=== PATIENT | male | born 1995 | race Two or more races ===

== ENCOUNTER 2023-02-14 12:52 | Outpatient (CLI) | payer OTHER, SELFPAY ==
[2023-02-14 13:39] LABS: Basophils Percent Auto 0.3 % (0.2-1.2); Hematocrit 49.3 % (42.0-52.0); Hemoglobin 15.9 g/dL (14.0-18.0); Immature Platelet Fraction Pct 11.9 % (0.9-11.2); Lymphocytes Absolute Auto 1.92 K/mm3 (0.9-3.2); Lymphocytes Percent Auto 52.7 % (18.3-44.2); Mean Corpuscular HGB Conc 32.3 g/dl (32-36); Mean Corpuscular Volume 86.8 fl (80-100); Mean Platelet Volume 11.3 fl (7.4-10.4); Monocytes Absolute Auto 0.4 K/mm3 (0.1-0.6); Monocytes Percent Auto 9.6 % (2.6-8.5); Neutrophils Absolute Auto 1.4 K/mm3 (1.3-6.7); Neutrophils Percent Auto 37.4 % (45.5-73.1); Platelet Count Result 119 k/mm3 (150-375); Red Blood Count 5.68 M/mm3 (4.6-6.20); Red Cell Distribution Width 11.9 % (11.5-14.5); White Blood Count 3.6 K/mm3 (4.5-10.0)
[2023-02-14 16:47] LABS: Iron 120 ug/dL (49-181)
[2023-02-14 16:49] LABS: Alanine Aminotransferase 16 U/L (6-50); Albumin Level 4.3 g/dL (3.5-5.1); Alkaline Phosphatase 76 U/L (38-126); Anion Gap 8 mmol/L (8-16); Aspartate Amino Transferase 30 U/L (17-59); Bilirubin,Total 1.3 mg/dL (0.2-1.3); Blood Urea Nitrogen 11 mg/dL (9-20); Calcium 9.5 mg/dL (8.4-10.2); Carbon Dioxide 28 mmol/L (22-30); Chloride 102 mmol/L (98-107); Estimated Glomerular Filt Rate > 60; Glucose 77 mg/dL (65-110); Potassium 4.1 mmol/L (3.4-5.0); Sodium 138 mmol/L (137-145)
[2023-02-14 16:57] LABS: Percent Iron Saturation 41 % (20-50)
[2023-02-14 17:55] LABS: Folic Acid 6.4 ng/mL (2.76->20)
[2023-02-18 08:58] LABS: Methylmalonic Acid 60 nmol/L (87-318)
[2023-02-18 12:15] LABS: Erythropoietin (EPO) 6.8 mIU/mL (2.6-18.5)
[2023-02-19 17:44] LABS: EBV Nuclear Ab Antibody <18.00 U/mL (<18.00); EBV Nuclear Ab Interpretation Recent; EBV Virus Capsid Ag IgG Ab >750.00 U/mL (<18.00); EBV Virus Capsid Ag IgM Ab <36.00 U/mL (<36.00)
== END 2023-02-14 12:53 | disposition home or self-care (01) ==
PROVIDERS: Nurse Practitioner Family; Visit Provider Internal Medicine Hematology & Oncology
DX: D72.819 Decreased white blood cell count, unspecified (principal); D64.9 Anemia, unspecified
CPT/HCPCS: 36415; 80053; 82607; 82668; 82746; 83540; 83550; 83921; 85025; 85055; 86038; 86664; 86665

== ENCOUNTER 2023-03-03 08:57 | Outpatient (CLI) | payer OTHER, SELFPAY ==
--- NOTE | ~2023-03-03 | US_ITS ---
US abdomen complete EXAMINATION: US Abdomen Complete INDICATION: Leukopenia. Hypertension. PROCEDURE: Realtime High Resolution abdomen ultrasound. COMPARISON: No prior studies for comparison FINDINGS: There is gallbladder sludge. No definite stones, gallbladder wall thickening or pericholecy stic fluid. Common bile duct measures 3 mm. Liver echotexture within normal limits without focal mass. Pancreas within normal limits. Pancreati c tail is obscured by bowel gas. Spleen is unremarkeable. Renal echotexture is within normal limits bilaterally without hydronephrosis, contour deforming mass or renal stone. Right kidney measures 10.3 cm. Left kidney measures 9.6 cm. Visualized aspects of the aorta and IVC are within normal limits. Portal vein is patent. No sonograph ic Lei's sign indicated by the technologist. IMPRESSION: 1: Gallbladder sludge. Reviewed, dictated and finalized at location B. NSIC MANAGER IMPRESSION: 1: Gallbladder sludge.
== END 2023-03-03 08:58 ==
PROVIDERS: PCP Internal Medicine Hematology & Oncology; Visit Provider Nurse Practitioner Family
DX: D72.819 Decreased white blood cell count, unspecified (principal)
CPT/HCPCS: 76700

== ENCOUNTER 2023-06-13 10:51 | Outpatient (CLI) | payer OTHER, SELFPAY ==
[2023-06-13 11:10] LABS: Hematocrit 45.2 % (42.0-52.0); Hemoglobin 14.8 g/dL (14.0-18.0); Mean Corpuscular HGB Conc 32.7 g/dl (32-36); Mean Corpuscular Hemoglobin 28.5 pg (26-34); Mean Corpuscular Volume 87.1 fl (80-100); Mean Platelet Volume 10.8 fl (7.4-10.4); Platelet Count Result 146 k/mm3 (150-375); Red Blood Count 5.19 M/mm3 (4.6-6.20); Red Cell Distribution Width 11.7 % (11.5-14.5); White Blood Count 3.2 K/mm3 (4.5-10.0)
[2023-06-13 11:33] LABS: Atypical Lymphocytes Present; Band Neutrophils Percent 1 % (0-6); Giant Platelets Present; Lymphocytes Absolute Manual 2.01 K/mm3 (1.1-4.5); Monocytes Absolute Manual 0.12 K/mm3 (0.1-0.90); Monocytes Percent Manual 4 % (3-9); Neutrophils Absolute Manual 1.05 K/mm3 (1.3-6.7); Neutrophils Percent Manual 32 % (46-73); Platelet Estimate Slightly Decreased (Adequate); Total Cells Counted 100
[2023-06-13 11:34] LABS: Schistocytes None Seen
[2023-06-18 19:28] LABS: Platelet Antibody, Direct NEGATIVE (NEGATIVE)
== END 2023-06-13 10:52 | disposition home or self-care (01) ==
PROVIDERS: Nurse Practitioner Family; PCP Internal Medicine Hematology & Oncology; Visit Provider Internal Medicine Hematology & Oncology
DX: D69.49 Other primary thrombocytopenia (principal); D72.819 Decreased white blood cell count, unspecified
CPT/HCPCS: 36415; 85025; 86023

== ENCOUNTER 2023-10-10 12:25 | Outpatient (CLI) | payer OTHER, SELFPAY ==
[2023-10-10 12:51] LABS: Basophils Percent Auto 0.4 % (0.2-1.2); Eosinophils Percent Auto 0.6 % (0-4.4); Hematocrit 45.9 % (42.0-52.0); Hemoglobin 14.8 g/dL (14.0-18.0); Lymphocytes Absolute Auto 1.72 K/mm3 (0.9-3.2); Lymphocytes Percent Auto 34.4 % (18.3-44.2); Mean Corpuscular HGB Conc 32.2 g/dl (32-36); Mean Corpuscular Hemoglobin 28.2 pg (26-34); Mean Corpuscular Volume 87.6 fl (80-100); Monocytes Absolute Auto 0.5 K/mm3 (0.1-0.6); Monocytes Percent Auto 9.2 % (2.6-8.5); Neutrophils Absolute Auto 2.8 K/mm3 (1.3-6.7); Neutrophils Percent Auto 55.4 % (45.5-73.1); Platelet Count Result 157 k/mm3 (150-375); Red Blood Count 5.24 M/mm3 (4.6-6.20); Red Cell Distribution Width 11.4 % (11.5-14.5)
== END 2023-10-10 12:26 | disposition home or self-care (01) ==
PROVIDERS: PCP Internal Medicine Hematology & Oncology; Visit Provider Internal Medicine Hematology & Oncology
DX: D72.819 Decreased white blood cell count, unspecified (principal)
CPT/HCPCS: 36415; 85025; 88184

== ENCOUNTER 2024-12-17 09:37 | Outpatient (CLI) | payer OTHER, SELFPAY ==
--- NOTE | ~2024-12-17 | XR_ITS ---
[[id number] ] INDICATION: Pleurodynia TECHNIQUE: Frontal projection of the upper ribs, frontal projection of the lower ribs, oblique projection of all the ribs, frontal inspiratory chest x-ray for interpretation. FINDINGS: There are nondisplaced fractures of the right fourth and fifth ribs. There is a healing/healed fracture of the left fifth rib posteriorly. There are no soft tissue abnormality seen. The lungs are clear. IMPRESSION: 1: Acute nondisplaced right fourth and fifth rib fractures. 2: Healing/healed left fifth rib fracture posteriorly. Reviewed, dictated and finalized at location O.
== END 2024-12-17 09:38 | disposition home or self-care (01) ==
PROVIDERS: PCP Nurse Practitioner; Visit Provider Nurse Practitioner
DX: R07.81 Pleurodynia (principal); S22.41XA Multiple fractures of ribs, right side, initial encounter for closed fracture; X58.XXXA Exposure to other specified factors, initial encounter
CPT/HCPCS: 71111